=== PATIENT | female | born 1995 | race Caucasian/White ===

== ENCOUNTER 2018-12-15 14:51 | Emergency (ER) | payer BC, OTHER ==
[2018-12-15 16:31] LABS: #Eosinphils 0.1 thou/uL (0.0-0.7); #Lymphocytes 2.2 thou/uL (1.20-3.40); #Monocytes 0.6 thou/uL (0.11-0.59); #Neutrophils 6.3 thou/uL (1.40-6.50); %Basophils 0.5 % (0.0-1.0); %Eosinophils 0.7 % (0.0-10.0); %Lymphocytes 24.1 % (21.0-51.0); %Monocytes 6.1 % (0.0-10.0); %Neutrophils 68.7 % (42.0-75.0); Hemoglobin 13.8 g/dL (12.0-16.0); Mean Corpuscular HGB CONC 34.4 g/dL (32.0-36.0); Mean Corpuscular Hemoglobin 30.6 pg (27.0-31.0); Mean Corpuscular Volume 89.1 fL (78.0-98.0); Mean Platelet Volume 6.9 fL (7.4-10.4); Platelet Count 169 thou/uL (130-400); RBC Distribution Width 11.4 % (11.5-14.5); White Blood Cell (WBC) Count 9.1 thou/uL (4.8-10.8)
[2018-12-15 16:37] LABS: INR-International Normal Ratio 1.1; PTT 31.6 SEC (22.9-36.1); Prothrombin Time 14.5 SEC (12.0-14.7)
--- NOTE | 2018-12-15 17:15 | ULT ---
LEFT LOWER EXTREMITY VENOUS ULTRASOUND WITH DOPPLER: 12/15/18 HISTORY: Left foot injury, three weeks ago. Left foot sprain. Pain in the calf. COMPARISON: None. TECHNIQUE: James scale, color flow, Doppler imaging with spectral waveform analysis performed in the left lower e xtremity venous system. FINDINGS: There is compressibility, presence of flow and augmentation in the common femoral vein, femoral vein, and popliteal vein. There is flow in the greater saphenous and profunda femoral vein. There is flow in the peroneal vein. This partially occludes a thrombus in the posterior tibial vein. IMPRESSION: Partially occlusive thrombus of the posterior tibial vein. POS: OFF
== END 2018-12-15 18:36 | disposition home or self-care (01) ==
LOC: ERS 14:51
DX: I82.402 Acute embolism and thrombosis of unspecified deep veins of left lower extremity (principal); F41.9 Anxiety disorder, unspecified
CPT/HCPCS: 36415; 85025; 85610; 85730

== ENCOUNTER 2018-12-18 21:09 | Emergency (ER) | payer BC, OTHER ==
[~2018-12-18 21:09] MED LIST: ISOVUE-370 76%-LOCM 1 ML ONE
[2018-12-18 21:50] LABS: #Eosinphils 0.1 thou/uL (0.0-0.7); #Monocytes 0.5 thou/uL (0.11-0.59); #Neutrophils 3.7 thou/uL (1.40-6.50); %Basophils 0.2 % (0.0-1.0); %Eosinophils 1.5 % (0.0-10.0); %Lymphocytes 31.2 % (21.0-51.0); %Monocytes 8.3 % (0.0-10.0); %Neutrophils 58.8 % (42.0-75.0); Mean Corpuscular HGB CONC 34.1 g/dL (32.0-36.0); Mean Corpuscular Hemoglobin 30.6 pg (27.0-31.0); Mean Corpuscular Volume 89.7 fL (78.0-98.0); Mean Platelet Volume 6.8 fL (7.4-10.4); Platelet Count 181 thou/uL (130-400); RBC Distribution Width 11.3 % (11.5-14.5); Red Blood Cell (RBC) Count 4.23 mill/uL (4.20-5.40); White Blood Cell (WBC) Count 6.3 thou/uL (4.8-10.8)
[2018-12-18 22:11] LABS: ALT (SGPT) 10 U/L (8-55); AST (SGOT) 12 U/L (5-34); Alkaline Phosphatase 45 U/L (40-150); Anion Gap 10 mmol/L (10-20); BUN (Urea Nitrogen) 16 mg/dL (7.0-18.7); Bilirubin, Total 0.4 mg/dL (0.2-1.2); Calc. Creatinine Clearance 0 mL/min (70-130); Calcium 9.3 mg/dL (7.8-10.44); Carbon Dioxide 25 mmol/L (22-29); Chloride 108 mmol/L (98-107); Estimated GFR-MDRD 88; Globulin 2.4 g/dL (2.4-3.5); Glucose 89 mg/dL (70-105); Potassium 3.8 mmol/L (3.5-5.1); Protein, Total 6.4 g/dL (6.0-8.3); Sodium 139 mmol/L (136-145)
[2018-12-18 22:31] LABS: BHCG - Serum Negative (NEGATIVE); Pregs Control Background? CLEAR/WHITE (CLR/WHITE); Pregs Control Bar Appear? YES (CONTROL BAR)
--- NOTE | 2018-12-18 23:01 | CT ---
CTA Angio Chest W WO Con History: Dyspnea Comparison: None. Findings: CT angiogram chest performed after the intravenous administration of contrast. 3-D renderin g provided. No proximal segmental pulmonary arterial filling defect. No pericardial effusion. Heart size is normal. No mediastinal adenopathy. Limited evaluation of the upper abdomen is normal. The lungs are clear. No pneumothorax or effusion. No consolidation. Sternum and manubrium are intact. No acute osseous abnormality. Impression: No proximal segmental pulmonary arterial filling defect or other acute abnormality of the chest.
== END 2018-12-18 23:43 | disposition home or self-care (01) ==
LOC: ERS 21:09
DX: I82.402 Acute embolism and thrombosis of unspecified deep veins of left lower extremity (principal); F41.9 Anxiety disorder, unspecified; Z79.891 Long term (current) use of opiate analgesic; Z79.01 Long term (current) use of anticoagulants
CPT/HCPCS: 36415; 71275; 80053; 83880; 84484; 84703; 85025; 93005; Q9966

== ENCOUNTER 2018-12-24 17:41 | Observation (INO) | payer BC, OTHER ==
[2018-12-24 18:25] LABS: #Lymphocytes 1.9 thou/uL (1.20-3.40); #Monocytes 0.8 thou/uL (0.11-0.59); #Neutrophils 9.1 thou/uL (1.40-6.50); %Eosinophils 0.1 % (0.0-10.0); %Lymphocytes 15.7 % (21.0-51.0); %Monocytes 7.1 % (0.0-10.0); %Neutrophils 77.1 % (42.0-75.0); Hemoglobin 13.7 g/dL (12.0-16.0); Mean Corpuscular HGB CONC 34.4 g/dL (32.0-36.0); Mean Corpuscular Hemoglobin 30.6 pg (27.0-31.0); Mean Corpuscular Volume 88.8 fL (78.0-98.0); Platelet Count 162 thou/uL (130-400); RBC Distribution Width 11.4 % (11.5-14.5); Red Blood Cell (RBC) Count 4.47 mill/uL (4.20-5.40); White Blood Cell (WBC) Count 11.8 thou/uL (4.8-10.8)
[2018-12-24 18:48] LABS: ALT (SGPT) 12 U/L (8-55); AST (SGOT) 13 U/L (5-34); Albumin 4.6 g/dL (3.5-5.0); Alkaline Phosphatase 56 U/L (40-150); Anion Gap 12 mmol/L (10-20); BUN (Urea Nitrogen) 14 mg/dL (7.0-18.7); Bilirubin, Total 0.9 mg/dL (0.2-1.2); Calc. Creatinine Clearance 0 mL/min (70-130); Calcium 9.7 mg/dL (7.8-10.44); Carbon Dioxide 25 mmol/L (22-29); Chloride 103 mmol/L (98-107); Estimated GFR-MDRD 81; Globulin 2.9 g/dL (2.4-3.5); Glucose 97 mg/dL (70-105); Potassium 3.7 mmol/L (3.5-5.1); Protein, Total 7.5 g/dL (6.0-8.3); Sodium 136 mmol/L (136-145)
[2018-12-24 18:58] LABS: Bilirubin Small (Negative); Blood, Urine Negative (Negative); Clarity CLEAR (Clear); Glucose, Urine (Dipstick) Negative (Negative); Leukocyte Negative (Negative); Nitrite Negative (Negative); Protein, Urine (Dipstick) 30 mg/dL (Neg-Trace)
[2018-12-24 19:00] LABS: Bacteria/HPF None Seen HPF (None Seen); Hyaline Casts/LPF 0-3 HYALINE CAST LPF (0-3 Hyaline); Pathc Cast-AUWi Flag 0.13 (0-2.49); Squamous Epithelial 0-3 HPF (0-3); WBC/HPF 0-3 HPF (0-3)
[2018-12-24 19:21] LABS: BHCG - Serum Negative (NEGATIVE); Pregs Control Background? CLEAR/WHITE (CLR/WHITE); Pregs Control Bar Appear? YES (CONTROL BAR)
--- NOTE | 2018-12-24 19:47 | CT ---
EXAM: CT angiogram of the chest including 3-D rendering: HISTORY: Dyspnea COMPARISON: 12/18/2018 FINDINGS: There is adequate opacification of the pulmonary arteries. No evidence for aortic aneurysm or dissection. No convincing CT evidence for acute pulmonary embolism. No significant acute pulmonary parenchymal process. No evidence for mediastinal mass or adenopathy. No evidence for pleural or pericardial effusion. The visualized upper abdomen is unremarkable. IMPRESSION: No convincing CT evidence for acute pulmonary embolism.
[2018-12-24] MEDS ORDERED: Acetaminophen 500 MG TAB ONE (20:47)
--- NOTE | 2018-12-24 21:30 | ULT ---
EXAM: Left lower extremity venous duplex ultrasound with color and spectral Doppler imaging: HISTORY: History of prior DVT, injury COMPARISON: 12/15/2018 FINDINGS: Exam performed from the groin to the ankle including the visualized greater saphenous, common femoral , superficial femoral, profunda femoral, popliteal, trifurcation, and posterior tibial veins. Phasic flow with normal compressibility normal augmentation seen down to the level of the popliteal v ein. There appears to be an area of total occlusion now in the left peroneal vein in the midportion as wel l as disease in the midportion of the posterior tibial vein IMPRESSION: Evidence for new occlusive disease in the mid peroneal vein. Posterior tibial vein occlusive disease appears stable. Findings discussed with Dr. Castillo at 9:25 PM CODE CR
--- NOTE | 2018-12-24 21:45 | PDOC.FPRHP ---
- History of Present Illness Chief Complaint: fever - Allergies/Adverse Reactions Allergies Allergy/AdvReac Type Severity Reaction Status Date / Time No Known Allergies Allergy Verified 11/10/14 18:03 - Home Medications Medication Instructions Recorded Confirmed Type Pnv No.95/Ferrous Fum/Folic AC 1 tablet PO DAILY 11/10/14 11/11/14 History [ Tablet] Acetaminophen [Tylenol Extra 1,000 mg PO Q4HR PRN 11/11/14 11/11/14 History Strength] - History PMHx: PSHx: FHx: Social: - Vital signs BP: 118/69, Pulse: 75, Resp: 19, Temp: 100.6 ORAL, Pain: 8, O2 sat: 99 on RA, Time: 12/24/2018 21:19. FMR H&P: Results - Labs Result Diagrams: 12/24/18 18:05 12/24/18 18:05 Lab results: WBC 11.8 thou/uL (4.8-10.8) H 12/24/18 18:05 Hgb 13.7 g/dL (12.0-16.0) 12/24/18 18:05 Hct 39.7 % (36.0-47.0) 12/24/18 18:05 MCV 88.8 fL (78.0-98.0) 12/24/18 18:05 Plt Count 162 thou/uL (130-400) 12/24/18 18:05 Neutrophils % 77.1 % (42.0-75.0) H 12/24/18 18:05 Sodium 136 mmol/L (136-145) 12/24/18 18:05 Potassium 3.7 mmol/L (3.5-5.1) 12/24/18 18:05 Chloride 103 mmol/L (98-107) 12/24/18 18:05 Carbon Dioxide 25 mmol/L (22-29) 12/24/18 18:05 BUN 14 mg/dL (7.0-18.7) 12/24/18 18:05 Creatinine 0.86 mg/dL (0.6-1.1) 12/24/18 18:05 Glucose 97 mg/dL (70-105) 12/24/18 18:05 Lactic Acid 1.1 mmol/L (0.5-2.2) 12/24/18 18:05 Calcium 9.7 mg/dL (7.8-10.44) 12/24/18 18:05 Total Bilirubin 0.9 mg/dL (0.2-1.2) 12/24/18 18:05 AST 13 U/L (5-34) 12/24/18 18:05 ALT 12 U/L (8-55) 12/24/18 18:05 Alkaline Phosphatase 56 U/L (40-150) 12/24/18 18:05 B-Natriuretic Peptide 19.4 pg/mL (0-100) 12/24/18 18:05 Serum Total Protein 7.5 g/dL (6.0-8.3) 12/24/18 18:05 Albumin 4.6 g/dL (3.5-5.0) 12/24/18 18:05 Urine Ketones Negative mg/dL (Negative) 12/24/18 18:45 Urine Blood Negative (Negative) 12/24/18 18:45 Urine Nitrite Negative (Negative) 12/24/18 18:45 Ur Leukocyte Esterase Negative (Negative) 12/24/18 18:45 Urine RBC 4-6 HPF (0-3) 12/24/18 18:45 Urine WBC 0-3 HPF (0-3) 12/24/18 18:45 Ur Squamous Epith Cells 0-3 HPF (0-3) 12/24/18 18:45 Urine Bacteria None Seen HPF (None Seen) 12/24/18 18:45 FMR H&P: Upper Level - Plan Date/Time: 12/24/182143 I, [], have evaluated this patient and agree with findings/plan as outlined by kinesiology internship resident. Pertinent changes/additions are listed here.
[2018-12-24 22:54] VITALS: BMI 22.1
[2018-12-25] MEDS: traMADol HCl 50 MG TAB PO PRN ×3 (00:38→20:13)
[2018-12-25] MEDS ORDERED: Guaifenesin DM 100-10/5 ML UDCUP PO PRN (02:39)
[2018-12-25] MEDS ORDERED: Bisacodyl 10 MG SUPP PR PRN (02:39)
[2018-12-25] MEDS ORDERED: Senokot S 8.6-50 MG TAB PO PRN (02:39)
--- NOTE | 2018-12-25 04:54 | HP ---
REASON FOR ADMISSION: 102 fever with history of DVT. HISTORY OF PRESENTING ILLNESS: Patient gives history of having fever of 102 at home. On arrival, had 102 as well here. She had generalized aches. She took nearly four tablets of Tylenol 500 mg every 4 hours, which did not seem to help her. The fever would go down but bounce back. No cough or expectoration. No history of urinary frequency or urgency. No sores or wounds. No complaints of back pain. She was diagnosed with DVT 10 days back. She has had a left ankle sprain which she sustained three weeks back at her workplace and is on worker's compensation for the same. Patient is not actively moving her left foot or toes at present. It has been three weeks now and says that the pain is still worse. Her worker's compensation has not approved MRI so far. PAST MEDICAL AND SURGICAL HISTORY: History of DVT in the left leg, recent trauma three weeks back to her left foot at her workplace, and wisdom tooth surgery. CURRENT MEDICATIONS: Xarelto 20 mg daily. ALLERGIES: NO KNOWN DRUG ALLERGIES. PERSONAL HISTORY: Does not abuse alcohol or drugs. No history of smoking. FAMILY HISTORY: Both parents are healthy. Paternal grandmother had history of clots. REVIEW OF SYSTEMS: CONSTITUTIONAL: Negative for weight loss or gain, ability to conduct usual activities. SKIN: Negative for rash, itching. EYES: Negative for double vision, pain. ENT/MOUTH: Negative for nose bleeding, neck stiffness, pain, tenderness. CARDIOVASCULAR: Negative for palpitations, dyspnea on exertion, orthopnea. RESPIRATORY: Negative for shortness of breath, wheezing, cough, hemoptysis, fever or night sweats. GASTROINTESTINAL: Negative for poor appetite, abdominal pain, heartburn, nausea , vomiting, constipation, or diarrhea. GENITOURINARY: Negative for urgency, frequency, dysuria, nocturia. MUSCULOSKELETAL: Negative for pain, swelling. NEUROLOGIC/PSYCHIATRIC: Negative for anxiety, depression. ALLERGY/IMMUNOLOGIC: Negative for skin rash, bleeding tendency. PHYSICAL EXAMINATION: GENERAL: Patient is a 23-year-old female who is currently not in any acute distress. VITAL SIGNS: Blood pressure 120/60, pulse 110 per minute, respiratory rate 20 per minute, temperature 102 degrees Fahrenheit, and saturating 99% on room air. NECK: Supple. No elevated JVD. HEENT: Eyes; extraocular muscles intact. Pupils reacting to light. Oral cavity, mucous membranes are moist. No exudates or congestion. CARDIOVASCULAR SYSTEM: S1-S2 heard. Regular rhythm. RESPIRATORY SYSTEM: Air entry 2+ bilateral. No rales or rhonchi. ABDOMEN: Soft. Bowel sounds heard. No tenderness, rigidity, or guarding. EXTREMITIES: Left foot; the forefoot is swollen. She has extreme tenderness even to touch. She does not actively move any of her toes or ankle due to severe apprehension/pain. Mild calf tenderness in the left side. Right lower extremity, no calf tenderness. Peripheral pulses are 2+ bilateral. No ischemic ulcerations or gangrene. CENTRAL NERVOUS SYSTEM: No gross focal deficits noted. Patient is alert, awake , and oriented well. PSYCHIATRIC SYSTEM: Patient's mood is euthymic. No hallucinations or delusions. LABORATORY DATA: EKG done, shows normal sinus rhythm at 73 beats per minute. White count of 11, H and H 13 and 39, platelet count 162, and MCV is 88 with 77% neutrophils. Electrolytes stable. BUN 14, creatinine 0.8. Liver enzymes are within normal limits. First set of cardiac enzymes are negative. BNP is 19. Albumin is 4.6. Serum test is negative. UA shows no evidence of UTI. CT angio chest done shows no evidence of PE. No acute pulmonary parenchymal process is seen. No pericardial effusion or pleural effusion is noted. Ultrasound venous Doppler of left lower extremity done, shows new occlusive disease in the mid peroneal vein. Posterior tibial vein occlusive disease appears stable. CLINICAL IMPRESSION AND PLAN: Patient has been placed under observation from ER for a fever of 102. She has known history of deep venous thrombosis in the left lower extremity. Patient is not weightbearing nor actively moving any of her toes nor ankle. She has excruciating pain in the extremity. In view of this, we will obtain an MRI of the left foot without contrast for now to see for any fractures or ligamentous injury, strain, sprain. As patient has some new DVT seen in her left lower extremity, we will switch her from Xarelto to Eliquis 5 mg twice daily. Blood cultures have been obtained in the ER. If patient remains afebrile for the next 12 hours and her MRI is negative for any fractures, dislocations, or sprains, she can safely be discharged knowing all too well that her fever is from her DVT. I have also consulted Dr. Zepeda for help with her left foot severe pain with trauma three weeks back. She has developed DVT due to severe pain and immobility in her left lower extremity. We will continue to closely monitor her on medical floor. Job ID: [id number] [facility]
[2018-12-25 07:16] LABS: #Lymphocytes 1.7 thou/uL (1.20-3.40); #Monocytes 0.8 thou/uL (0.11-0.59); #Neutrophils 4.8 thou/uL (1.40-6.50); %Basophils 0.1 % (0.0-1.0); %Eosinophils 0.5 % (0.0-10.0); %Lymphocytes 23.6 % (21.0-51.0); %Monocytes 11.3 % (0.0-10.0); %Neutrophils 64.5 % (42.0-75.0); Hemoglobin 11.9 g/dL (12.0-16.0); Mean Corpuscular HGB CONC 34.3 g/dL (32.0-36.0); Mean Corpuscular Hemoglobin 30.8 pg (27.0-31.0); Mean Corpuscular Volume 89.8 fL (78.0-98.0); Platelet Count 130 thou/uL (130-400); RBC Distribution Width 11.4 % (11.5-14.5); Red Blood Cell (RBC) Count 3.86 mill/uL (4.20-5.40); White Blood Cell (WBC) Count 7.4 thou/uL (4.8-10.8)
[2018-12-25 07:37] LABS: Anion Gap 11 mmol/L (10-20); BUN (Urea Nitrogen) 14 mg/dL (7.0-18.7); Calc. Creatinine Clearance 106 mL/min (70-130); Calcium 8.6 mg/dL (7.8-10.44); Carbon Dioxide 26 mmol/L (22-29); Chloride 104 mmol/L (98-107); Estimated GFR-MDRD Greater than 90; Glucose 87 mg/dL (70-105); Potassium 3.6 mmol/L (3.5-5.1); Sodium 137 mmol/L (136-145)
[2018-12-25] MEDS: Apixaban 5 MG TAB PO SCH ×2 (09:05→20:13)
[2018-12-25] MEDS: Gabapentin 100 MG CAP PO SCH ×2 (14:44→20:13)
--- NOTE | 2018-12-25 16:45 | MRI ---
Exam: Left foot MRI without IV contrast: HISTORY: Left foot pain, injury from a trauma 3 weeks ago FINDINGS: No evidence for abnormal marrow signal. Minimal superficial subcutaneous fat stranding over the dorsa l aspect of the forefoot prominent laterally. Intrinsic muscles of the foot appear intact. No abnormal fluid collection. Visualized flexor, extensor, peroneus tendons appear intact. No evidence f or other significant abnormality. IMPRESSION: Minimal superficial subcutaneous fat stranding over the dorsum of the foot particularly laterally. No evidence for fracture, stress injury, or other abnormal marrow signal, particularly in the region of clinical concern.
[2018-12-25] MEDS: Acetaminophen 325 MG TAB PO PRN (21:24)
[2018-12-25] MEDS ORDERED: Fiorinal 325/50/40 mg Tablet PO PRN (23:02)
[2018-12-26] MEDS ORDERED: HYDROcodone/Acetaminophen 5/325 mg Tablet PO PRN (07:42)
[2018-12-26] MEDS ORDERED: Ondansetron ODT 4 MG TAB PO PRN (07:42)
[2018-12-26] MEDS ORDERED: Loratadine 10 MG TAB PO PRN (07:42)
[2018-12-26] MEDS ORDERED: Sodium Chloride 0.65% Nasal 44 ML BOT EA NARE PRN (07:42)
[2018-12-26] MEDS ORDERED: Zolpidem Tartrate 5 MG TAB PO PRN (07:42)
[2018-12-26] MEDS ORDERED: Artificial Tears 18 DROP/0.9 ML EA EYE PRN (07:42)
[2018-12-26] MEDS ORDERED: Calcium Carbonate 500 MG ChewTAB PO PRN (07:42)
[2018-12-26] MEDS ORDERED: Ondansetron PF 4 MG/2 ML Vial IVP PRN (07:42)
[2018-12-26] MEDS ORDERED: hydrALAZINE 20 MG/ML VIAL SLOW IVP PRN (07:42)
[2018-12-26] MEDS ORDERED: Diabetic Tussin 200 MG/10 ML UDCUP PO PRN (07:42)
[2018-12-26] MEDS ORDERED: Loperamide HCl 2 MG CAP PO PRN (07:42)
[2018-12-26] MEDS ORDERED: Cepastat Lozenges 1 LOZ PO PRN (07:42)
[2018-12-26 08:20] VITALS: BP 108/62; TEMP 98.3
[2018-12-26] MEDS: Gabapentin 100 MG CAP PO SCH (08:31)
[2018-12-26] MEDS: Apixaban 5 MG TAB PO SCH (08:31)
[2018-12-26] MEDS: Acetaminophen 325 MG TAB PO PRN (08:40)
[2018-12-26] MEDS ORDERED: Ascorbic Acid 500 mg Chewable Tablet PO SCH (09:00)
--- NOTE | 2018-12-26 11:56 | DIS ---
DATE OF ADMISSION: 12/24/2018 DATE OF DISCHARGE: 12/26/2018 PRIMARY CARE PHYSICIAN: [facility] Call Admission. DISCHARGE DISPOSITION: Home. PRIMARY DISCHARGE DIAGNOSES: 1. Intractable left lower extremity pain due to likely complex regional pain syndrome. 2. Acute deep vein thrombosis of tibial vein. 3. Fever due to problem #2. SECONDARY DISCHARGE DIAGNOSES: None. PRIMARY PROCEDURES/OPERATIONS: CT angiography, negative for pulmonary embolism. Ultrasound followup showed new occlusive disease in the mid peroneal vein. Lower extremity MRI showed minimal superficial subcutaneous fat stranding over the dorsum of the foot, particularly laterally. Previous ultrasound showed positive for tibial vein thrombosis on the left side. SIGNIFICANT LABORATORY DATA: WBC 7.8, hemoglobin 11.9, platelets 130. Sodium 137, potassium 3.6, BUN 14, creatinine 0.73, glucose 87, calcium 8.6. LFT normal. Troponin negative. BNP 19.4. test negative. Urinalysis, normal. Blood culture negative. DISCHARGE MEDICATIONS: 1. Tramadol 50 mg one or two tablets q.6 hourly p.r.n. 2. Eliquis 5 mg p.o. b.i.d. 3. Vitamin C 500 mg p.o. daily. 4. Neurontin 100 mg p.o. t.i.d. CONTRAINDICATION: None. CODE STATUS: Full code. INPATIENT IT PROJECT LEAD: Dr. Jan Zepeda was consulted for intractable left foot pain and he was attributing to be due to complex regional pain syndrome. DISCHARGE PLAN: Posthospital, the patient is instructed to follow up with primary care physician as well as Dr. Jan Zepeda. The patient is also advised to follow up with outpatient PT/OT. ALLERGIES: NO KNOWN DRUG ALLERGIES. HOSPITAL COURSE: A 23-year-old female with above-mentioned medical problem, who was admitted by Dr. Erickson, please see his H and P for further details. This patient had a work related injury and she was on workmen's comp. About 10 days ago, she was evaluated in the emergency room and she developed left-sided tibial vein thrombosis. The patient had fall and subsequently after injury, she was mostly remained bed and that was contributing to her DVT. During this admission, the patient came back because she was having lot of pain in her left foot and she was not able to manage at home. She was also having headache. In the emergency room, she had CT angiography, which was negative for PE. Ultrasound did confirm new peroneal thrombus. The patient was admitted under Medicine Service. We consulted Orthopedic Physician. We did MRI of lower extremity, which was unremarkable. During this admission, we considered changing Xarelto to Eliquis therapy. The patient agreed with that medication, risk and benefit, the patient expressed understanding. She also had fever and that was another concern for keeping her in the hospital, but we attributed her fever to be due to deep vein thrombosis. While in hospital, we did not see any fever. She remained completely asymptomatic. The patient's pulse was running on the lower side, but she was asymptomatic. Her vitals were stable. Plan of care discussed with the patient and her family member at bedside. I have seen and examined the patient at bedside today. PHYSICAL EXAMINATION: VITAL SIGNS: Currently, temperature 98.3, pulse 52, respiratory rate 16, saturation 99%, and blood pressure 108/62. Weight 125 pounds. GENERAL: The patient is currently alert and awake, in no obvious acute distress. HEENT: Head, normocephalic and atraumatic. LUNGS: Clear without any rhonchi or rales. CARDIAC: S1 and S2, regular. No murmur. No gallop. No rub. ABDOMEN: Soft and benign. EXTREMITIES: The patient does have elastic stocking on left side. No swelling or erythema noted. Right lower extremity within normal limit. NEUROLOGIC: Nonfocal examination. The patient is medically stable for discharge today. All review of systems reviewed. Necessary discharge instruction about medication with Eliquis discussed. Risk and benefit of anticoagulation discussed. She will continue at least 3 to 4 months of her first time DVT. She was evaluated by orthopedic physician while in hospital and they started gabapentin. This patient is also advised to follow up with the outpatient PT/OT to decide when she could return back to work and she will follow up with primary care physician. Job ID: [id number]
--- NOTE | 2018-12-26 20:08 | CON ---
DATE OF CONSULTATION: 12/26/2018 CHIEF COMPLAINT: Left foot pain. HISTORY OF PRESENT ILLNESS: Ms. Juarez is a 23-year-old female with increasing pain in the left foot. The patient has improved with her gabapentin pain lopez as well as vitamin C. The patient has had an MRI performed today. Resting comfortably in bed. Boot was brought, but not placed. It is currently placed at the bedside. The patient is afebrile, resting comfortably in bed, still hypersensitivity swelling. Good pulses. Discussed limited flexion and extension of her toes. MRI shows no acute fracture, dislocations and/or soft tissue swelling, but otherwise an unremarkable exam. DIAGNOSES: 1. Complex regional pain syndrome. 2. Deep venous thrombosis. ASSESSMENT AND PLAN: Medical management for deep venous thrombosis by Medicine. For discharge, the patient needs to be discharged with gabapentin and vitamin C. For pain relief, the dose can be increased from 300 t.i.d. up to 600 t.i.d. followed by not improving her pain. I discussed that long-term she may require a ganglion block to help with pain control. She will need to have outpatient therapy. She will follow up with Dr. Concepcion for management. Job ID: [id number]
--- NOTE | 2018-12-27 12:14 | CON ---
DATE OF CONSULTATION: HISTORY OF PRESENT ILLNESS: Cindy is a 23-year-old female, who presents with left lower extremity pain. The patient had an event about 3 weeks ago at her work, in which she had a twisting injury to her ankle. She was then diagnosed with DVT of this left lower extremity. The patient has decreased range of motion, redness and swelling that have resolved slowly over time. She has sensory loss in the dorsal and plantar surface of her foot. The patient has hypersensitivity to touch on the top of her foot. She is currently on Xarelto for DVT. The patient has a history of use of control. PAST MEDICAL HISTORY: DVTs, currently on Xarelto treatment; ankle sprain; and wisdom tooth extraction. CURRENT MEDICATIONS: Xarelto. ALLERGIES: NO KNOWN DRUG ALLERGIES. PERSONAL HISTORY: Denies abuse of alcohol, drugs, or smoking. The patient works at [employer]. REVIEW OF SYSTEMS: Noncontributory. PHYSICAL EXAMINATION: VITAL SIGNS: Temperature 98.6, heart rate 64, respiratory rate 16, O2 saturations 96%, blood pressure 101/62. GENERAL: Alert and oriented female, in no acute distress, resting comfortably in bed. EXTREMITIES: Left upper and lower extremities; the patient shows no significant swelling at this time to hand, but some subtle swelling in the dorsum of her foot. No ecchymosis. No erythema. She has only subtle flicker of dorsiflexion, plantarflexion, toe flexion extension without severe pain. Dorsiflexion of her foot causes stiffness in the back of her hand. She has severe tenderness to palpation of the superficial branch of the peroneal nerve. The patient has improved light touch in the plantar surface as well as in the first and second web space. The patient has no significant warmth, but severe pain with range of motion. LABORATORY DATA: X-rays of her foot show no acute fracture. No obvious osteopenia. The patient has ultrasound, which shows a DVT and new clot area of the mid peroneal vein as well as previous tibial vein, which is stable. The patient had a CT of her chest, which was negative. IMPRESSION: 1. Status post ankle injury 3 weeks ago. 2. Deep venous thrombosis. 3. Complex regional pain syndrome. ASSESSMENT AND PLAN: I felt like the patient likely has complex regional pain syndrome with a minimal injury. The redness that I saw and swelling I saw on the previous picture she has taken of her foot are more consistent with the diagnosis. The patient has weakness. She has paresthesias. She is not able to move her foot and has some pain out of proportion, which were all consistent. She has no obvious signs of fracture, and MRI is pending. The patient will be started on vitamin C as well as 100 mg of gabapentin t.i.d. The patient will await the results of the MRI, will be placed in a boot, will be weightbearing as tolerated. She may require a block if conservative measures fail in an outpatient setting, a ganglion block if she continues to have issues. Job ID: [id number] MTDD
== END 2018-12-26 13:13 | disposition home or self-care (01) ==
LOC: ERS 17:41 → T4-A 22:44
PROVIDERS: ADMIT Family Medicine; ATTEND Family Medicine
DX: I82.442 Acute embolism and thrombosis of left tibial vein (principal); R50.9 Fever, unspecified; F41.9 Anxiety disorder, unspecified; Z79.01 Long term (current) use of anticoagulants
CPT/HCPCS: 36415; 71275; 80048; 80053; 81003; 81015; 83605; 83880; 84484; 84703; 85025; 87040; 93005; G0378; Q9966

== ENCOUNTER 2019-01-18 11:20 | Emergency (ER) | payer BC, OTHER ==
--- NOTE | 2019-01-18 12:05 | ULT ---
ULTRASOUND LEFT LOWER EXTREMITY VENOUS DOPPLER: Date: 01/18/19 HISTORY: Deep venous thrombosis. COMPARISON: Venous Doppler dated 12/15/18. FINDINGS: The patient has a known thrombosis of the left lower extremity. Real-time James scale, color, and spectral analysis of the left lower extremity venous system was perf ormed. The common femoral, femoral, proximal portions of greater saphenous and deep femoral veins, as well as the popliteal and posterior tibial veins were interrogated. There continues to be occlusive thrombus of left posterior tibial vein. IMPRESSION: Continued thrombus posterior tibial vein. The peroneal vein was not interrogated. POS: [facility]
== END 2019-01-18 12:53 | disposition home or self-care (01) ==
LOC: ERS 11:20
DX: I82.402 Acute embolism and thrombosis of unspecified deep veins of left lower extremity (principal); G90.522 Complex regional pain syndrome I of left lower limb; F41.9 Anxiety disorder, unspecified; Z79.899 Other long term (current) drug therapy